=== PATIENT | male | born 1955 | race Caucasian/White ===

== ENCOUNTER → 2018-02-03 | Outpatient (CLI) | payer OTHER ==
[~2018-02-03] MED LIST: ADVAIR 250/501 EA INH; ALBUTEROL0.09 MG/A2 INH; AMLODIPINE BESY1 TAB PO; AMLODIPINE BESY10 MG PO; AMLODIPINE-BENAZEPRI; AMOXICILLIN,AM875 MG PO; ANAPROX DS550 MG PO; ANXIETY PILL; BENZONATE100 MG PO; BLOOD PRESSURE PILL; CEFUROXIME AXE250 MG PO; DALI500T PO; DALIRESP500 MC1 PO; DIFLUCAN100 MG PO; DOXYCYCLINE MO100 M1 PO; DOXYCYCLINE100 MG PO; FLUTICASON0.05 MG/A1 NAS; FLUTICASON0.05 MG/AC NAS; LEVAQUIN750 M1 PO; LEVOFLOXACIN500 MG PO; METHYLPRED-DP4 MG PO; MOTRIN800 MG PO; MYCELEX TROCHE10 MG MM; OPANA ER30 M1 PO; OXYCODONE HCL5 MG PO; OXYCONTIN40 MG PO; PANTOPRAZOLE40 M1 PO; PHENERGAN W/ DE30 ML PO; PREDNISONE10 MG PO; PREDNISONE20 MG PO; PREVACID30 M2 PO; PRO-AIR INH; PROAIR HFA0.09 MG/AC INH; PROTONIX40 M1 PO; REGLAN5 MG PO; SINGULAIR10 MG PO; SPIRIVA -- 3018 MCG INH; SYMBICORT1 AE1 INH; VERAPAMIL HCL240 MG PO; VICODIN ES 7501 TAB PO; ZANTAC 150150 MG PO; ZITHROMAX Z PA250 MG PO
== END | disposition home or self-care (01) ==
LOC: MRI 12:45
DX: M17.11 Unilateral primary osteoarthritis, right knee (principal); S83.91XA Sprain of unspecified site of right knee, initial encounter; S83.241A Other tear of medial meniscus, current injury, right knee, initial encounter; X58.XXXA Exposure to other specified factors, initial encounter; Y93.89 Activity, other specified; Y92.89 Other specified places as the place of occurrence of the external cause; Y99.8 Other external cause status; Z91.81 History of falling

== ENCOUNTER → 2019-07-20 | Outpatient (CLI) | payer SELFPAY | END | disposition home or self-care (01) | LOC: RESCLI 10:23 → LAB 10:23 | DX: U07.1 COVID-19 (principal) ==

== ENCOUNTER 2019-10-09 12:15 | Emergency (ER) | payer BC ==
[~2019-10-09] VITALS: Wt 101.2 kg
[2019-10-09] MEDS ORDERED: PREDNISONE20 M1 PO (16:25)
[2019-10-09] MEDS ORDERED: NORCO 5-325 TA1 EACH PO (16:25)
== END 2019-10-09 16:27 | disposition home or self-care (01) ==
LOC: ED 12:15
DX: S39.012A Strain of muscle, fascia and tendon of lower back, initial encounter (principal); E11.9 Type 2 diabetes mellitus without complications; I10 Essential (primary) hypertension; Z79.899 Other long term (current) drug therapy; Z87.891 Personal history of nicotine dependence; X58.XXXA Exposure to other specified factors, initial encounter; Y93.89 Activity, other specified; Y92.89 Other specified places as the place of occurrence of the external cause; Y99.8 Other external cause status

== ENCOUNTER → 2020-02-06 | Outpatient (CLI) | payer OTHER ==
[~2020-02-06] MED LIST changes: +NORCO 5-325 TA1 EACH PO; +PREDNISONE20 M1 PO
[2020-02-06 11:33] LABS: BASO % 0.3 % (0.0-1.0); EOS # 0.2 10*3/uL (0.0-0.4); EOS % 3.6 % (1.0-4.0); HEMATOCRIT 42.9 % (42.0-52.0); LYMPH # 1.7 10*3/uL (1.3-4.4); LYMPH % 25.3 % (27.0-41.0); MEAN CELL VOLUME 87.9 fl (80.0-94.0); MEAN CORPUSCULAR HGB 26.8 pg (27.0-31.0); MEAN CORPUSCULAR HGB CONC 30.5 g/dl (33.0-37.0); MEAN PLATELET VOLUME 10.6 fl (9.6-12.3); MONO # 0.4 10*3/uL (0.1-1.0); MONO % 6.5 % (3.0-9.0); NEUT # 4.2 10*3/uL (2.3-7.9); NEUT % 63.8 % (47.0-73.0); PLATELET COUNT AUTOMATED 197 10*3/uL (130-400); RED BLOOD COUNT 4.88 10*6/uL (4.50-5.90); RED CELL DISTRI WIDTH 15.1 % (0-14.5); WHITE BLOOD COUNT 6.6 10*3/uL (4.8-10.8)
== END | disposition home or self-care (01) ==
LOC: LAB 11:14
PROVIDERS: ATTEND Internal Medicine Critical Care Medicine
DX: Z79.899 Other long term (current) drug therapy (principal)

== ENCOUNTER 2021-05-19 09:44 | Emergency (ER) | payer MEDICARE ==
[~2021-05-19] VITALS: Ht 182.8 cm; Wt 99.8 kg
[~2021-05-19 09:44] MED LIST changes: +AMLODIPINE BESYL5 MG PO; +BUPROPION HYDR150 M3 PO; +DULOXETINE HCL30 MG PO; +LOSARTAN POTAS100 M1 PO; +NEURONTIN300 MG PO; +OMEPRAZOLE40 MG PO; +SILDENAFIL CIT100 MG PO
[2021-05-19 10:16] LABS: BASO % 0.3 % (0.0-1.0); HEMATOCRIT 44.1 % (42.0-52.0); LYMPH # 2.2 10*3/uL (1.3-4.4); LYMPH % 24.6 % (27.0-41.0); MEAN CELL VOLUME 82.1 fl (80.0-94.0); MEAN CORPUSCULAR HGB 26.1 pg (27.0-31.0); MEAN CORPUSCULAR HGB CONC 31.7 g/dl (33.0-37.0); MEAN PLATELET VOLUME 10.5 fl (9.6-12.3); MONO # 0.8 10*3/uL (0.1-1.0); MONO % 9.2 % (3.0-9.0); NEUT # 5.7 10*3/uL (2.3-7.9); NEUT % 64.5 % (47.0-73.0); PLATELET COUNT AUTOMATED 236 10*3/uL (130-400); RED BLOOD COUNT 5.37 10*6/uL (4.50-5.90); RED CELL DISTRI WIDTH 14.8 % (0-14.5); WHITE BLOOD COUNT 8.9 10*3/uL (4.8-10.8)
[2021-05-19 10:29] LABS: ALBUMIN 2.8 gm/dl (3.1-4.5); ALKALINE PHOSPHATASE 69 U/L (45-117); BUN 16 mg/dl (7-24); CHLORIDE 109 mmol/L (98-107); CREATININE 1.08 mg/dL (0.70-1.30); POTASSIUM 2.9 mmol/L (3.5-5.1); SGOT/AST 13 IU/L (3-35); SGPT/ALT 22 U/L (12-78); SODIUM 144 mmol/L (136-145); TOTAL PROTEIN 6.2 gm/dL (6.4-8.2)
[2021-05-19] MEDS ORDERED: ZITHROMAX250 MG PO (12:03)
[2021-05-19] MEDS ORDERED: PREDNISONE50 MG PO (12:05)
== END 2021-05-19 12:12 | disposition home or self-care (01) ==
LOC: ED 09:44
PROVIDERS: Emergency Medicine
DX: J20.9 Acute bronchitis, unspecified (principal); J44.9 Chronic obstructive pulmonary disease, unspecified; Z79.899 Other long term (current) drug therapy; Z90.49 Acquired absence of other specified parts of digestive tract; Z87.891 Personal history of nicotine dependence

== ENCOUNTER 2023-09-04 08:56 | Emergency (ER) | payer MEDICARE ==
[~2023-09-04] VITALS: Ht 182.8 cm; Wt 90.7 kg
[~2023-09-04 08:56] MED LIST changes: +ATORVASTATIN CA20 M1 PO; +CLONAZEPAM1 MG PO; +GABAPENTIN600 MG PO; +GLUMETZA500 MG PO; +MUCUS RELIEF600 MG PO; +PREDNISONE50 MG PO; +ZITHROMAX250 MG PO
[2023-09-04] MEDS ORDERED: methylPREDNISolone sod succ 125 MG VIAL IV ONE (09:25)
[2023-09-04] MEDS ORDERED: Albuterol Sulf/Ipratropium 3 ML VIAL NEB ONE (09:25)
[2023-09-04 09:45] LABS: BASO % 0.2 % (0.0-1.0); HEMATOCRIT 47.8 % (42.0-52.0); LYMPH # 1.1 10*3/uL (1.3-4.4); LYMPH % 18.4 % (27.0-41.0); MEAN CELL VOLUME 88.5 fl (80.0-94.0); MEAN CORPUSCULAR HGB 28.1 pg (27.0-31.0); MEAN CORPUSCULAR HGB CONC 31.8 g/dl (33.0-37.0); MEAN PLATELET VOLUME 10.7 fl (9.6-12.3); MONO # 0.6 10*3/uL (0.1-1.0); MONO % 10.8 % (3.0-9.0); NEUT # 4.2 10*3/uL (2.3-7.9); NEUT % 70.4 % (47.0-73.0); PLATELET COUNT AUTOMATED 203 10*3/uL (130-400); RED CELL DISTRI WIDTH 12.9 % (0-14.5); WHITE BLOOD COUNT 5.9 10*3/uL (4.8-10.8)
[2023-09-04 10:06] LABS: ACT PARTIAL THROMBO TIME 27.3 SECONDS (20.0-32.1)
[2023-09-04 10:07] LABS: ALKALINE PHOSPHATASE 79 U/L (46-116); BUN 15 mg/dl (9-23); CHLORIDE 103 mmol/L (98-107); LIPASE 101 U/L (12-53); POTASSIUM 3.2 mmol/L (3.4-5.1); SGPT/ALT 9 U/L (5-49); TOTAL PROTEIN 6.6 gm/dL (6.0-8.0)
[2023-09-04] MEDS ORDERED: Losartan Potassium 50 MG TAB PO ONE (10:30)
[2023-09-04] MEDS ORDERED: PREDNISONE10 MG PO (12:06)
[2023-09-04] MEDS ORDERED: AMOX-CLAV 875-1 EACH PO (12:06)
[2023-09-04] MEDS ORDERED: POTASSIUM CHLORIDE 20 MEQ TAB PO ONE (12:10)
== END 2023-09-04 12:12 | disposition home or self-care (01) ==
LOC: ED 08:56
PROVIDERS: Internal Medicine
DX: J44.1 Chronic obstructive pulmonary disease with (acute) exacerbation (principal); I10 Essential (primary) hypertension; J45.909 Unspecified asthma, uncomplicated; Z90.49 Acquired absence of other specified parts of digestive tract; Z87.891 Personal history of nicotine dependence

== ENCOUNTER 2024-06-15 21:34 | Emergency (ER) | payer OTHER ==
[~2024-06-15] VITALS: Ht 182.9 cm; Wt 95.3 kg
[~2024-06-15 21:34] MED LIST changes: +AMOX-CLAV 875-1 EACH PO; +Albuterol 108mcg/A; +BENZONATATE100 M1 PO; +DOXYCYCLINE MO100 MG PO; +K-TAB20 MEQ PO; +KLONOPIN2 M1 PO; +LASIX20 MG PO; +LOSARTAN POTASS25 M1 PO; +SPIRIVA RESPIMAT4 GM INH; +TRAZODONE100 MG PO
[2024-06-15 23:14] LABS: BASO % 0.2 % (0.0-1.0); HEMATOCRIT 40.5 % (42.0-52.0); MEAN CELL VOLUME 87.1 fl (80.0-94.0); MEAN CORPUSCULAR HGB 27.1 pg (27.0-31.0); MEAN CORPUSCULAR HGB CONC 31.1 g/dl (33.0-37.0); MEAN PLATELET VOLUME 9.9 fl (9.6-12.3); MONO # 1.2 10*3/uL (0.1-1.0); MONO % 11.4 % (3.0-9.0); NEUT # 8.4 10*3/uL (2.3-7.9); PLATELET COUNT AUTOMATED 243 10*3/uL (130-400); RED BLOOD COUNT 4.65 10*6/uL (4.50-5.90); RED CELL DISTRI WIDTH 13.6 % (0-14.5); WHITE BLOOD COUNT 10.7 10*3/uL (4.8-10.8)
[2024-06-15 23:25] LABS: ACT PARTIAL THROMBO TIME 28.9 SECONDS (20.0-32.1)
[2024-06-15 23:39] LABS: ALKALINE PHOSPHATASE 77 U/L (46-116); BUN 14 mg/dl (9-23); CHLORIDE 101 mmol/L (98-107); LDH 195 U/L (120-246); LIPASE 62 U/L (12-53); POTASSIUM 3.8 mmol/L (3.4-5.1); SGPT/ALT 17 U/L (5-49); TOTAL PROTEIN 6.6 gm/dL (6.0-8.0)
[2024-06-16 00:19] LABS: BILIRUBIN Negative (Negative); BLOOD Negative (Negative); CLARITY Clear (Clear); COLOR Yellow (Yellow); GLUCOSE Trace (Negative); KETONE Negative (Negative); LEUKO ESTERASE Negative (Negative); NITRITE Negative (Negative); SPECIFIC GRAVITY 1.015 (1.001-1.030)
[2024-06-16 00:38] LABS: BACTERIA TRACE
[2024-06-16] MEDS ORDERED: predniSONE 20 MG TAB PO ONE (01:40)
[2024-06-16] MEDS ORDERED: Amoxicillin/Clavulanate Pota 875 MG TAB PO ONE (01:40)
[2024-06-16] MEDS ORDERED: Albuterol Sulf/Ipratropium 3 ML VIAL NEB ONE (01:40)
[2024-06-16] MEDS ORDERED: FUROSEMIDE 20 MG TAB PO ONE (01:45)
[2024-06-16] MEDS ORDERED: ASPIRIN, CHEWABLE 81 MG TAB PO ONE (01:45)
[2024-06-16] MEDS ORDERED: Doxycycline Hyclate 100 MG CAP PO ONE (01:45)
[2024-06-16] MEDS ORDERED: MEDROL DOSEPAK4 MG PO (01:51)
[2024-06-16] MEDS ORDERED: AMOX-CLAV 875-1 EACH PO (01:51)
[2024-06-16] MEDS ORDERED: VIBRAMYCIN100 MG PO (01:51)
== END 2024-06-16 02:42 | disposition home or self-care (01) ==
LOC: ED 21:34
PROVIDERS: Emergency Medicine
DX: J20.9 Acute bronchitis, unspecified (principal); J44.0 Chronic obstructive pulmonary disease with (acute) lower respiratory infection; R60.0 Localized edema; I11.0 Hypertensive heart disease with heart failure; I50.9 Heart failure, unspecified; Z79.899 Other long term (current) drug therapy; Z90.49 Acquired absence of other specified parts of digestive tract; Z87.891 Personal history of nicotine dependence